=== PATIENT | male | born 1950 | race Caucasian/White ===

== ENCOUNTER 2018-12-25 15:35 | Inpatient (IN) | payer MEDICARE, OTHER ==
[~2018-12-25] VITALS: Ht 188 cm; Wt 127.9 kg
[2018-12-27 14:00] VITALS: BP 99/68
== END 2018-12-27 19:40 | disposition home or self-care (01) | DRG 637 ==
LOC: ED 17:19 → EDIP 17:24 → CCU 20:13 → 3NE 12-26 13:01
PROVIDERS: ADMIT Internal Medicine; ATTEND Internal Medicine
DX: E11.65 Type 2 diabetes mellitus with hyperglycemia (principal); N17.0 Acute kidney failure with tubular necrosis; E87.1 Hypo-osmolality and hyponatremia; R65.10 Systemic inflammatory response syndrome (SIRS) of non-infectious origin without acute organ dysfunction; Z94.4 Liver transplant status; D72.829 Elevated white blood cell count, unspecified; E66.9 Obesity, unspecified; E86.0 Dehydration; F12.90 Cannabis use, unspecified, uncomplicated; F15.90 Other stimulant use, unspecified, uncomplicated; Z79.4 Long term (current) use of insulin; H54.7 Unspecified visual loss; I10 Essential (primary) hypertension; E66.01 Morbid (severe) obesity due to excess calories; G89.29 Other chronic pain; M54.9 Dorsalgia, unspecified
CPT/HCPCS: 36415; 71045; 76700; 80048; 80053; 80061; 80074; 80076; 80307; 81003; 82010; 82570; 82800; 82947; 82962; 83036; 83735; 83930; 84300; 85025; 85610; 87081; 87521; 93005; 96361; 96374; G0378; J1815; J2405; J2270; J7030; J7050